=== PATIENT | male | born 1980 | race Caucasian/White ===

== ENCOUNTER 2017-02-19 22:49 | Emergency (ER) | payer OTHER ==
[~2017-02-19] VITALS: Ht 185.4 cm; Wt 101.0 kg
[2017-02-19 23:04] VITALS: BP 145/92; PULSE 83; RESP 18; TEMP 98.4; O2SAT 97
[2017-02-19] MEDS ORDERED: CLON1 PO (23:37)
--- NOTE | 2017-02-19 23:38 | PD ---
HPI Chief Complaint: Anxiety Time Seen by Provider: 23:19 Travel History International Travel<30 days: No Contact w/Intl Traveler<30days: No Traveled to known affect area: No History of Present Illness HPI 36 yo M c/o anxiety. Duration several hours. it's gradually increasing. normally Klonopin works however his doctor cancelled the appointment for today. There is one scheduled in 2 days. he has no pain. location generalized. severity moderate. he denies drugs/etoh. PFSH Past Medical History Anxiety: Yes Influenza Vaccination: Yes Social History Alcohol Use: No Tobacco Use: No Substance Use: No Allergies-Medications (Allergen,Severity, Reaction): Coded Allergies: No Known Allergies (Unverified , 02/19/17) Reported Meds & Prescriptions Reported Meds & Active Scripts Active Klonopin (Clonazepam) 1 Mg Tab 1 Mg PO BID PRN Review of Systems Except as stated in HPI: all other systems reviewed are Neg Physical Exam Narrative GENERAL: 36 yo M, WNWD, mildly anxious SKIN: Warm and dry. HEAD: Atraumatic. Normocephalic. EYES: Pupils equal and round. No scleral icterus. No injection or drainage. ENT: No nasal bleeding or discharge. Mucous membranes pink and moist. NECK: Trachea midline. No JVD. CARDIOVASCULAR: Regular rate and rhythm. RESPIRATORY: No accessory muscle use. Clear to auscultation. Breath sounds equal bilaterally. GASTROINTESTINAL: Abdomen soft, non-tender, nondistended. Hepatic and splenic margins not palpable. MUSCULOSKELETAL: Extremities without clubbing, cyanosis, or edema. No obvious deformities. NEUROLOGICAL: Awake and alert. No obvious cranial nerve deficits. Motor grossly within normal limits. Five out of 5 muscle strength in the arms and legs. Normal speech. PSYCHIATRIC: Mildly anxious. NO HI/SI. Data Data Last Documented VS Vital Signs Date Time Temp Pulse Resp B/P Pulse Ox O2 Delivery O2 Flow Rate FiO2 02/19/17 23:32 18 02/19/17 23:04 98.4 83 145/92 97 VS reviewed Orders Clonazepam (Klonopin) (02/19/17 23:45) MDM Medical Decision Making Medical Screen Exam Complete: Yes Emergency Medical Condition: Yes Medical Record Reviewed: Yes Differential Diagnosis medication refill, anxiety, panic attack Narrative Course We'll provide a short course of Klonopin for the patient. We discussed complementary approaches to anxiety. Pt warned of long-term risks of benzodiazepines including Alzheimer's dementia. Pt verbalized understanding. He's ready for discharge. Diagnosis Primary Impression: Anxiety Referrals: Primary Care Physician 2 days Additional Instructions: You have a choice when it comes to health care, and we are glad that you chose [facility]. Hopefully, we have met your expectations on today's visit. You are welcome to return to [facility] at any time, as we are committed to meeting the health care needs of our community. Med/Other Pt SpecificInfo: Prescription(s) given Scripts Clonazepam (Klonopin)1 Mg Tab1 Mg PO BID PRN (SEVERE ANXIETY OR AGITATION) #15 TAB Ref 0 Prov:Magdaleno Hennessy MD 02/19/17 Disposition: 01 DISCHARGE HOME Condition: Stable Magdaleno Hennessy MD February 19, 2017 23:38
[2017-02-19] MEDS ORDERED: clonazePAM 1 MG TAB PO ONE (23:45)
== END 2017-02-20 00:02 | disposition home or self-care (01) ==
LOC: PHED 22:49
DX: F41.9 Anxiety disorder, unspecified (principal)
CPT/HCPCS: 99283